=== PATIENT | male | born 1950 | race Caucasian/White ===

== ENCOUNTER → 2023-07-17 | Outpatient (CLI) | payer OTHER ==
[2023-07-17 11:07] VITALS: BP 148/85; PULSE 78; RESP 16; TEMP 97.6
--- NOTE | 2023-07-17 14:07 | P.PAINPG ---
PQRS Measure Charge Sheet Comment: HISTORY OF PRESENT ILLNESS: A 72 yr old male w at side as a referral from the [facility] presents today w severe and chronic neck pain secondary to spondylosis, DDD and facet arthropathy without myelopathy for evaluation. Pt states pain level is provoked at 6 /10 in intensity, constant, localized in the cervical spine, predominantly axial, sharp in character w occasional shooting pain towards the head and R shoulder/ RUE. Pain is provoked by driving. Pain is alleviated by PT in 2017, massage therapy years ago, chiropractic treatments w acupuncture in 2021, physician guided stretches daily since 2021, medications (Robaxin, Neurontin, Tyl), Lidoderm, repositioning and rest. Cervical disability score at 28. PMH: OA, CRPS, HTN, Hyperlipidemia PSH: Lumbar Laminectomy, LESIs (in the past), Ankle Surgery SH: Negative x3 FH: Mo- DM. Sis- CAD All: See list Meds: See list REVIEW OF ORGAN SYSTEMS: CONSTITUTIONAL: No fevers or chills. No recent weight loss. NEUROLOGICAL: + numbness and tingling along the distal extremities. No seizure disorders or headaches. MUSCULOSKELETAL: + pain PSYCHIATRIC: Denies current depression or suicidal thoughts. Physical Examinations : Constitutional : Cooperative , not in acute distress . Neurologic : Cranial nerve II to XII intact. No focal neurological deficits. Psychiatric : alert & oriented x 3. Matching mood & appropriate affect. Judgment & insight intact. Musculoskeletal : Cervical Spine Motor strength in the deltoid and biceps: Normal right side. Normal Left side Motor strength biceps and the wrist extensors: Normal right side . Normal left side Motor strength in the triceps muscle: Normal right side. Normal left side Deep tendon reflexes: Normal at the biceps. Normal at Brachioradialis. Normal at triceps Vertebral body tenderness to deep palpation over Cervical facet loading test: positive bilaterally C4-C5, C5-C6 Spurling test: positive bilaterally Neck distraction test: positive bilaterally Harvinder sign: positive bilaterally Lumbar spine Motor strength lower extremities ,thigh and legs 5/5 Right side , 5/5 Left side Deep tendon reflexes : Normal Knee Jerk. Normal Ankle Jerk Vertebral body tenderness over [place] Test positive Lumbar facet Loading Test: positive Right / positive Left Range of motion of the lumbar spine Flexion 30 degrees, extension 10 degrees Straight Leg Raise test: Left/ Right positive at degree Sukumar test: positive right / positive left. Severe tenderness over the Sacroiliac joint on the Right / Left sides Gaenslen test: positive bilaterally Seated flexion test: positive bilaterally. Sacral spine : Severe tenderness over the Sacroiliac joint: right side / left side Range of motion: Flexion of the lumbar spine <60 degrees Range of motion: Extension of the lumbar spine <20 degrees Gaenslen's Test positive Sukumar test: positive right side / left side Thigh Thrust Test Sacral Thrust Test Imaging: Noncontrast of the cervical spine from 05/24/2023 reviewed Assessment/ Plan : Cervical DDD Recommendation of BL MBB C4-C5, C5-C6 #1. May need a series of injections, up until RFA, for optimal pain relief. Risks, benefits of procedure discussed and patient verbalized understanding. Admits to anti- coagulant use or medical history of diabetes. Protocol for discontinuation/ continuation of medications juan procedure discussed. Minimal anesthesia provided, if clinically indicated, consisting of Versed and Fentanyl. All questions answered. I have spent greater than 30 minutes on patient care today. Dr Bah was a vailable by phone for the evaluation of this patient. The time was used to review the medical records including relevant urine studies and Prescription history (MAPs), review of the available imaging, evaluation and examination of the patient, coordination of care with the medical staff and if applicable referring physicians, as well as creation of the medical record Home Medications: Ambulatory Orders Atorvastatin [Lipitor] 40 mg PO DAILY 07/17/23 Gabapentin 300 mg PO 07/17/23 Lidocaine 5% Patch [Lidoderm] 1 patch TOPICAL DAILY 07/17/23 Losartan [Cozaar] 25 mg PO DAILY 07/17/23 SUMAtriptan succinate 50 mg PO 07/17/23 Topiramate 25 mg PO 07/17/23 amLODIPine 10 mg PO DAILY 07/17/23 methocarbamoL [Robaxin-750] 750 mg PO QID 07/17/23 Controlled Substance Measures - Controlled Substance Measures Is patient prescribed a controlled substance at discharge?: No
== END ==
LOC: PNWHC3 09:41
PROVIDERS: ATTEND Specialist
DX: M50.30 Other cervical disc degeneration, unspecified cervical region (principal); Z88.5 Allergy status to narcotic agent
CPT/HCPCS: 99202

== ENCOUNTER 2023-07-28 07:14 | Day surgery (SDC) | payer OTHER ==
[2023-07-28] MEDS: LACTATED RINGERS 1,000 ML IV SCH (07:38)
[2023-07-28 07:46] VITALS: RESP 16; TEMP 97.8
[2023-07-28] MEDS ORDERED: MIDAZOLAM 2 MG/2 ML VIAL ONE (07:50)
[2023-07-28] MEDS ORDERED: fentaNYL (PF) 50 MCG/ML 2 ML AMP ONE (07:50)
[2023-07-28] MEDS ORDERED: ROPIVACAINE 5MG/ML 20ML VIAL ONE (07:57)
--- NOTE | 2023-07-28 08:18 | P.PCN ---
Date of Procedure: 07/28/23 Procedure(s) Performed: PREOPERATIVE DIAGNOSIS: 1-Cervical Spondylosis with Facet Arthropathy.without myelopathy. 2-cervical degenerative disc disease POSTOPERATIVE DIAGNOSIS:1-cervical spondylosis with facet arthropathy without myelopathy. 2-cervical degenerative disc disease PROCEDURES: Diagnostic bilateral C4 , C5 , and C6 medial branch blocks, with fluoroscopic guidance (fluoroscopy images available in radiology department ) ( to target the facet joint at bilateral C4- 5 , C5- 6 )# 1st ANESTHESIA: Monitored anesthesia care as per anesthesia department . EBL: Minimal PROCEDURE INDICATION: The patient with neck pain secondary to cervical arthropathy unresponsive to more conservative treatments. PROCEDURE DESCRIPTION / TECHNIQUE: The patient was seen and identified in the preoperative area. Risks, benefits, complications, and alternatives were discussed with the patient, the patient agreed to proceed with the procedure and signed the consent. IV was started. Vital signs remained stable throughout the procedure. Patient was taken to the OR and time out was completed. The patient was placed in the Lateral position on the procedure table. The cervical area was prepped and draped in the usual sterile fashion. Critical pause was taken. Vital signs were closely monitored during the procedure. Conscious sedation was used during the procedure to decrease patients anxiety. Using cross-table lateral fluoroscopy, the centroid of the trapezoid of right C4 , C5 and C6, was identified, marked, and localized with 1% lidocaine 1 ml at each level for skin and Sub Q infiltrations . Subsequently, a 22 G 3 spinal needle was advanced guided by fluoroscopy to the centroid of the trapezoid of Right C4 , C5, C6 . [place] tip position was confirmed at the centroid of the trapezoids of Right C4 , C5 ,C6 with anteroposterior fluoroscopy. Subsequently, 2 ml of preservative-free Ropivacaine 0.5% and half ml was injected after negative aspiration for blood and CSF. [place] was then removed intact the same procedure was repeated at the left C4 , C5 , and C6 levels. COMPLICATIONS: No acute complications. DISPOSITION / PLANS: The patient was placed in a supine position and transferred to the recovery area in a stable condition for observation and was discharged from the recovery room after meeting discharge criteria. Home discharge instructions given to the patient by the staff. The patient was reexamined prior to discharge. The patient will schedule a follow up in the clinic in 2-4 weeks.
[2023-07-28] MEDS: IV FLUID CONTINUATION 650 ML IV ONE (08:20)
--- NOTE | 2023-07-28 08:39 | FL ---
EXAMINATION TYPE: FL guided pain mgmt statistic DATE OF EXAM: 07/28/2023 FLUOROSCOPY Gee cervical facet block 8 sec fl .[id number] mGycm2 DAP 4 images provided
[2023-07-28 08:57] VITALS: BP 137/71; PULSE 71
== END 2023-07-28 09:02 | disposition home or self-care (01) ==
LOC: ORPAIN 07:14
PROVIDERS: ATTEND Specialist
DX: M50.322 Other cervical disc degeneration at C5-C6 level (principal); M47.812 Spondylosis without myelopathy or radiculopathy, cervical region; I10 Essential (primary) hypertension; E78.5 Hyperlipidemia, unspecified; G43.909 Migraine, unspecified, not intractable, without status migrainosus; Z88.6 Allergy status to analgesic agent; Z79.899 Other long term (current) drug therapy
CPT/HCPCS: 64490; 64491 ×2; 99152; J2250; J3010; J2795

== ENCOUNTER → 2023-08-09 | Outpatient (CLI) | payer OTHER ==
[2023-08-09 11:02] VITALS: BP 157/89; PULSE 59; RESP 16; TEMP 97.8
--- NOTE | 2023-08-09 13:52 | P.PAINPG ---
PQRS Measure Charge Sheet Comment: HISTORY OF PRESENT ILLNESS: A 73 yr old male w at side presents today w severe and chronic neck pain > 5 yrs secondary to spondylosis, DDD and facet arthropathy without myelopathy for evaluation s/p BL MBB C4-C6 #1. Pt states he experienced 100 % pain relief x 3 hrs s/p procedure. Pt states pain level is provoked at 8 /10 in intensity, constant, localized in the cervical spine, predominantly axial, sharp in character w occasional shooting pain towards the head and R shoulder/ RUE. Pain is provoked by driving. Pain is alleviated by PT in 2017, massage therapy years ago, chiropractic treatments w acupuncture in 2021, physician guided stretches daily since 2021, medications, topical, repositioning and rest. Cervical disability score at 27. Interventional procedures include BL MBB C4-C6 x1 Medications include Robaxin, Neurontin, Tyl, Lidoderm REVIEW OF ORGAN SYSTEMS: CONSTITUTIONAL: No fevers or chills. No recent weight loss. NEUROLOGICAL: + numbness and tingling along the distal extremities. No seizure disorders or headaches. MUSCULOSKELETAL: + pain PSYCHIATRIC: Denies current depression or suicidal thoughts. Physical Examinations : Constitutional : Cooperative , not in acute distress . Neurologic : Cranial nerve II to XII intact. No focal neurological deficits. Psychiatric : alert & oriented x 3. Matching mood & appropriate affect. Judgment & insight intact. Musculoskeletal : Cervical Spine Motor strength in the deltoid and biceps: Normal right side. Normal Left side Motor strength biceps and the wrist extensors: Normal right side . Normal left side Motor strength in the triceps muscle: Normal right side. Normal left side Deep tendon reflexes: Normal at the biceps. Normal at Brachioradialis. Normal at triceps Vertebral body tenderness to deep palpation over Cervical facet loading test: positive bilaterally C4-C5, C5-C6 Spurling test: positive bilaterally Neck distraction test: positive bilaterally Harvinder sign: positive bilaterally Lumbar spine Motor strength lower extremities ,thigh and legs 5/5 Right side , 5/5 Left side Deep tendon reflexes : Normal Knee Jerk. Normal Ankle Jerk Vertebral body tenderness over [place]rien Test positive Lumbar facet Loading Test: positive Right / positive Left Range of motion of the lumbar spine Flexion 30 degrees, extension 10 degrees Straight Leg Raise test: Left/ Right positive at degree Sukumar test: positive right / positive left. Severe tenderness over the Sacroiliac joint on the Right / Left sides Gaenslen test: positive bilaterally Seated flexion test: positive bilaterally. Sacral spine : Severe tenderness over the Sacroiliac joint: right side / left side Range of motion: Flexion of the lumbar spine <60 degrees Range of motion: Extension of the lumbar spine <20 degrees Gaenslen's Test positive Sukumar test: positive right side / left side Thigh Thrust Test Sacral Thrust Test Imaging: Noncontrast of the cervical spine from 05/24/2023 reviewed Assessment/ Plan : Cervical DDD Recommendation of BL MBB C4-C6 #2. May need a series of injections, up until RFA, for optimal pain relief. Risks, benefits of procedure discussed and patient verbalized understanding. Admits to anti- coagulant use or medical history of diabetes. Protocol for discontinuation/ continuation of medications juan procedure discussed. Minimal anesthesia provided, if clinically indicated, consisting of Versed and Fentanyl. All questions answered. I have spent greater than 30 minutes on patient care today. Dr Bah was available by phone for the evaluation of this patient. The time was used to review the medical records including relevant urine studies and Prescription history (MAPs), review of the available imaging, evaluation and examination of t he patient, coordination of care with the medical staff and if applicable referring physicians, as well as creation of the medical record PQRS Narrative: Hx Alcohol Use (MH) No Home Medications: Ambulatory Orders Atorvastatin [Lipitor] 40 mg PO DAILY 07/17/23 Gabapentin 300 mg PO DAILY PRN 07/17/23 Lidocaine 5% Patch [Lidoderm] 1 patch TOPICAL DAILY 07/17/23 Losartan [Cozaar] 25 mg PO DAILY 07/17/23 SUMAtriptan succinate 50 mg PO HS 07/17/23 Topiramate 25 mg PO HS 07/17/23 amLODIPine 10 mg PO DAILY 07/17/23 methocarbamoL [Robaxin-750] 750 mg PO QID 07/17/23 Controlled Substance Measures - Controlled Substance Measures Is patient prescribed a controlled substance at discharge?: No
== END ==
LOC: PNWHC3 09:44
PROVIDERS: ATTEND Specialist
DX: M50.30 Other cervical disc degeneration, unspecified cervical region (principal); Z88.5 Allergy status to narcotic agent
CPT/HCPCS: 99211

== ENCOUNTER 2023-08-29 09:24 | Day surgery (SDC) | payer OTHER ==
[2023-08-24 14:22] VITALS: BMI 29.8
[2023-08-29] MEDS: LACTATED RINGERS 1,000 ML IV SCH (09:59)
[2023-08-29 10:28] VITALS: TEMP 97.7
[2023-08-29] MEDS ORDERED: ROPIVACAINE 5MG/ML 20ML VIAL ONE (10:29)
[2023-08-29] MEDS ORDERED: MIDAZOLAM 2 MG/2 ML VIAL ONE (10:29)
[2023-08-29] MEDS ORDERED: fentaNYL (PF) 50 MCG/ML 2 ML AMP ONE (10:29)
--- NOTE | 2023-08-29 10:52 | P.PCN ---
Date of Procedure: 08/29/23 Procedure(s) Performed: PREOPERATIVE DIAGNOSIS: 1-Cervical Spondylosis with Facet Arthropathy.without myelopathy. 2-cervical degenerative disc disease POSTOPERATIVE DIAGNOSIS:1-cervical spondylosis with facet arthropathy without myelopathy. 2-cervical degenerative disc disease PROCEDURES: Diagnostic bilateral C4 , C5 , and C6 medial branch blocks, with fluoroscopic guidance (fluoroscopy images available in radiology department ) ( to target the facet joint at bilateral C4- 5 , C5- 6 )#2nd ANESTHESIA: Sedation with Versed 2 mg and fentanyl 100 mcg . (Patient to start time 10:29, finished at 10:49 ) EBL: Minimal PROCEDURE INDICATION: The patient with neck pain secondary to cervical arthropathy unresponsive to more conservative treatments. PROCEDURE DESCRIPTION / TECHNIQUE: The patient was seen and identified in the preoperative area. Risks, benefits, complications, and alternatives were discussed with the patient, the patient agreed to proceed with the procedure and signed the consent. IV was started. Vital signs remained stable throughout the procedure. Patient was taken to the OR and time out was completed. The patient was placed in the Lateral position on the procedure table. The cervical area was prepped and draped in the usual sterile fashion. Critical pause was taken. Vital signs were closely monitored during the procedure. Conscious sedation was used during the procedure to decrease patients anxiety. Using cross-table lateral fluoroscopy, the centroid of the trapezoid of right C4 , C5 and C6, was identified, marked, and localized with 1% lidocaine 1 ml at each level for skin and Sub Q infiltrations . Subsequently, a 22 G 3 spinal needle was advanced guided by fluoroscopy to the centroid of the trapezoid of Right C4 , C5, C6 . [place] tip position was confirmed at the centroid of the trapezoids of Right C4 , C5 ,C6 with anteroposterior fluoroscopy. Subsequently, 2 ml of preservative-free Ropivacaine 0.5% and half ml was injected after negative aspiration for blood and CSF. [place] was then removed intact the same procedure was repeated at the left C4 , C5 , and C6 levels. COMPLICATIONS: No acute complications. DISPOSITION / PLANS: The patient was placed in a supine position and transferred to the recovery area in a stable condition for observation and was discharged from the recovery room after meeting discharge criteria. Home discharge instructions given to the patient by the staff. The patient was reexamined prior to discharge. The patient will schedule a follow up in the clinic in 2-4 weeks.
[2023-08-29] MEDS: IV FLUID CONTINUATION 1,000 ML IV ONE (10:59)
--- NOTE | 2023-08-29 11:06 | FL ---
EXAMINATION TYPE: FL guided pain mgmt statistic Intraoperative/procedural fluoroscopic services were provided. Total fluoroscopy time is 33.0 seconds with a total of 4 submitted images to PACS. Please s ee the operative/procedural note for further details. DAP: 0.02477 mGym2
[2023-08-29 11:09] VITALS: RESP 16
[2023-08-29 11:49] VITALS: BP 113/72; PULSE 77
== END 2023-08-29 11:30 | disposition home or self-care (01) ==
LOC: ORPAIN 09:24
PROVIDERS: ATTEND Specialist
DX: M47.812 Spondylosis without myelopathy or radiculopathy, cervical region (principal); M50.322 Other cervical disc degeneration at C5-C6 level; Z88.6 Allergy status to analgesic agent
CPT/HCPCS: 64490; 64491 ×2; 99152; J2250; J3010; J2795

== ENCOUNTER → 2023-09-18 | Outpatient (CLI) | payer OTHER ==
[2023-09-18 13:06] VITALS: BP 140/75; PULSE 76; RESP 15; TEMP 98.7
--- NOTE | 2023-09-18 14:10 | P.PAINPG ---
PQRS Measure Charge Sheet Comment: HISTORY OF PRESENT ILLNESS: A 73 yr old male w at side presents today w severe and chronic neck pain > 5 yrs secondary to spondylosis, DDD and facet arthropathy without myelopathy for evaluation s/p BL MBB C4-C6 #2. Pt states he experienced 80 % pain relief x 4 hrs s/p procedure. Pt states pain level is provoked at 8 /10 in intensity, constant, localized in the cervical spine, predominantly axial, sharp in character w occasional shooting pain towards the head and R shoulder/ RUE. Pain is provoked by driving. Pain is alleviated by PT in 2017, massage therapy years ago, chiropractic treatments w acupuncture in 2021, physician guided stretches daily since 2021, medications, topical, repositioning and rest. Cervical disability score at 26. Interventional procedures include BL MBB C4-C6 x2 Medications include Robaxin, Neurontin, Tyl, Lidoderm REVIEW OF ORGAN SYSTEMS: CONSTITUTIONAL: No fevers or chills. No recent weight loss. NEUROLOGICAL: + numbness and tingling along the distal extremities. No seizure disorders or headaches. MUSCULOSKELETAL: + pain PSYCHIATRIC: Denies current depression or suicidal thoughts. Physical Examinations : Constitutional : Cooperative , not in acute distress . Neurologic : Cranial nerve II to XII intact. No focal neurological deficits. Psychiatric : alert & oriented x 3. Matching mood & appropriate affect. Judgment & insight intact. Musculoskeletal : Cervical Spine Motor strength in the deltoid and biceps: Normal right side. Normal Left side Motor strength biceps and the wrist extensors: Normal right side . Normal left side Motor strength in the triceps muscle: Normal right side. Normal left side Deep tendon reflexes: Normal at the biceps. Normal at Brachioradialis. Normal at triceps Vertebral body tenderness to deep palpation over Cervical facet loading test: positive bilaterally C4-C5, C5-C6 Spurling test: positive bilaterally Neck distraction test: positive bilaterally Harvinder sign: positive bilaterally Lumbar spine Motor strength lower extremities ,thigh and legs 5/5 Right side , 5/5 Left side Deep tendon reflexes : Normal Knee Jerk. Normal Ankle Jerk Vertebral body tenderness over Obrien Test positive Lumbar facet Loading Test: positive Right / positive Left Range of motion of the lumbar spine Flexion 30 degrees, extension 10 degrees Straight Leg Raise test: Left/ Right positive at degree Sukumar test: positive right / positive left. Severe tenderness over the Sacroiliac joint on the Right / Left sides Gaenslen test: positive bilaterally Seated flexion test: positive bilaterally. Sacral spine : Severe tenderness over the Sacroiliac joint: right side / left side Range of motion: Flexion of the lumbar spine <60 degrees Range of motion: Extension of the lumbar spine <20 degrees Gaenslen's Test positive Sukumar test: positive right side / left side Thigh Thrust Test Sacral Thrust Test Imaging: Noncontrast of the cervical spine from 05/24/2023 reviewed Assessment/ Plan : Cervical DDD Recommendation of BL RFA C4-C6. Exhibited optimal pain relief w previous BL MBB procedures. Risks, benefits of procedure discussed and patient verbalized understanding. Admits to anti- coagulant use or medical history of diabetes. Protocol for discontinuation/ continuation of medications juan procedure discussed. Minimal anesthesia provided, if clinically indicated, consisting of Versed and Fentanyl. Recommendation of medication management. [place] 5/325mg #60 qw 1 RF. Use, side effects, adverse reactions, safe storage discussed. Opiate/ narcotic agreement signed 09/18/23. All questions answered. I have spent greater than 30 minutes on patient care today. Dr Bah was available by phone for the evaluation of this patient. The time was used to review the medical records including relevant urine studies and Prescription history (MAPs), review of the available imaging, evaluation and examination of the patient, coordination of care with the medical staff and if applicable referring physicians, as well as creation of the medical record PQRS Narrative: Hx Alcohol Use (MH) No Home Medications: Ambulatory Orders Atorvastatin [Lipitor] 40 mg PO QAM 07/17/23 Gabapentin 300 mg PO DAILY PRN 07/17/23 Lidocaine 5% Patch [Lidoderm] 1 patch TOPICAL QAM 07/17/23 Losartan [Cozaar] 25 mg PO QAM 07/17/23 SUMAtriptan succinate 50 mg PO HS PRN 07/17/23 Topiramate 50 mg PO HS 07/17/23 amLODIPine 10 mg PO QAM 07/17/23 methocarbamoL [Robaxin-750] 750 mg PO QID 07/17/23 Acetaminophen Tab [Tylenol] 650 mg PO Q6H PRN 08/24/23 Controlled Substance Measures - Controlled Substance Measures Is patient prescribed a controlled substance at discharge?: Yes When asked, does pt state using other controlled substances?: Yes If prescribed controlled substance>3 days was MAPS reviewed?: Yes If Rx opioid, was Start Talking consent form obtained?: Yes Was information provided regarding opioid addiction?: Yes
== END ==
LOC: PNWHC3 10:03
PROVIDERS: ATTEND Specialist
DX: M50.321 Other cervical disc degeneration at C4-C5 level (principal); M50.322 Other cervical disc degeneration at C5-C6 level; M47.812 Spondylosis without myelopathy or radiculopathy, cervical region; G89.29 Other chronic pain; Z88.8 Allergy status to other drugs, medicaments and biological substances
CPT/HCPCS: 99211

== ENCOUNTER 2023-09-28 07:03 | Day surgery (SDC) | payer OTHER ==
[2023-09-25 16:09] VITALS: BMI 29.8
[2023-09-28] MEDS: LACTATED RINGERS 1,000 ML IV ONE ×2 (07:49→09:30)
[2023-09-28 08:18] VITALS: TEMP 96.9
[2023-09-28] MEDS ORDERED: DEXAMETHASONE SOD PHOSPHATE 10 MG/ML 1 ML VIAL ONE (08:36)
[2023-09-28] MEDS ORDERED: MIDAZOLAM 2 MG/2 ML VIAL ONE (08:36)
[2023-09-28] MEDS ORDERED: ROPIVACAINE 5MG/ML 20ML VIAL ONE (08:36)
[2023-09-28] MEDS ORDERED: fentaNYL (PF) 50 MCG/ML 2 ML AMP ONE (08:36)
--- NOTE | 2023-09-28 09:26 | P.PCN ---
Date of Procedure: 09/28/23 Description of Procedure: PREOPERATIVE DIAGNOSIS: Cervical spondylosis M47.812 POSTOPERATIVE DIAGNOSIS: Cervical spondylosis M47.812 PROCEDURES: Radiofrequency thermocoagulation, RIGHT C4-C5. C5-6 ANESTHESIA: Local with 1% lidocaine; IV sedation with 100 mcq fentanyl and 3mg Versed. EBL: Minimal PROCEDURE INDICATION: The patient with neck pain secondary to cervical arthropathy. He has had multiple RFA's with excellent relief. PROCEDURE DESCRIPTION / TECHNIQUE: The patient was seen and identified in the preoperative area. Risks, benefits, complications, and alternatives were discussed with the patient, the patient agreed to proceed with the procedure and signed the consent. IV was started. Vital signs remained stable throughout the procedure. Patient was taken to the OR and time out was completed. The patient was placed in the prone position on the procedure table. A pillow was placed under the patients chest to increase the cervical interlaminar space. The cervical area was prepped and draped in the usual sterile fashion. Critical pause was taken. Vital signs were closely monitored during the procedure. Conscious sedation was used during the procedure to decrease patients anxiety. AP, and 30 degree oblique, the centroid of the Right trapezoid of C4, C5, and C6 were identified, marked, and localized with 1% lidocaine, 5ml at each site. Subsequently, a 20 [id number] radiofrequency cannula with a 10-mm active tip was advanced guided by fluoroscopy to the centroid of the trapezoid of C4, C5, and C6 . Needle tip position was confirmed at the centroid of the trapezoids of C3, C4, C5, and C6 with anteroposterior fluoroscopy, lateral, and contralateral oblique. Each site then underwent sensory testing at 50 Hz and 0 to 1 volt and motor testing at 2 Hz and 0 to 3 volt with local stimulation, but no radicular symptoms down the arm. Sensory testing was positive for reproducible sensation in the treatment target area. Motor stimulation showed excellent multifidus muscle contraction with no radiation Thereafter C4,C5 and C6 sites underwent rad iofrequency thermocoagulation at 80 degrees celsius for 60 seconds after injecting 0.5 ml of PF lidocaine 1%. [place] were retracted slightly, rotated, and second burn was performed. After thermocoagulation, 1 ml of the block solution containing dexamethasone 10 mg and 4 mL of ropivacaine was injected at the C4, C5, and C6 levels after negative aspiration of CSF and blood and with no paresthesias. Cannulas were retracted while injecting lidocaine 1% until the needle is out. Skin was cleansed and bandages were applied. COMPLICATIONS: No acute complications. COMMENTS: DISPOSITION / PLANS: The patient was placed in a supine position and transferred to the recovery area in a stable condition for observation and was discharged from the recovery room after meeting discharge criteria. Home discharge instructions given to the patient by the staff. The patient was reexamined prior to discharge. The patient will schedule left cervical RFA in 2- 4 weeks. All images were saved and stored. Fluoroscopy utilized to obtimize needle position
[2023-09-28] MEDS ORDERED: LACTATED RINGERS 1,000 ML IV SCH (09:30)
--- NOTE | 2023-09-28 09:33 | FL ---
EXAMINATION TYPE: FL guided pain mgmt statistic DATE OF EXAM: 09/28/2023 HISTORY: Fluoroscopy time Total dose area product (DAP) in uGy*m?, mGy*cm? (or similar): 0.12237 IMPRESSION: 1. Fluoroscopy time.
[2023-09-28 09:54] VITALS: BP 126/82; PULSE 66; RESP 18
== END 2023-09-28 10:07 | disposition home or self-care (01) ==
LOC: ORPAIN 07:03
PROVIDERS: ATTEND Anesthesiology
DX: M47.812 Spondylosis without myelopathy or radiculopathy, cervical region (principal); Z88.6 Allergy status to analgesic agent
CPT/HCPCS: 64633; 64634; J2250; J1100; J3010; J2795

== ENCOUNTER 2023-10-04 11:40 | Day surgery (SDC) | payer MEDICARE, OTHER ==
[2023-09-27 12:55] VITALS: BMI 29.8
[~2023-10-04 11:40] MED LIST: LIDOCAINE 1% (10MG/ML) FOR IV START INTRADERMA PRN
[2023-10-04] MEDS: LACTATED RINGERS 1,000 ML IV SCH (12:21)
[2023-10-04 12:45] VITALS: TEMP 97.1
[2023-10-04] MEDS ORDERED: PROPOFOL 10 MG/ML 20 ML VIAL IV ONE (12:56)
--- NOTE | 2023-10-04 13:15 | P.PCN ---
Date of Procedure: 10/04/23 Procedure(s) Performed: BRIEF HISTORY: Patient is a 73-year-old pleasant white male scheduled for an elective colonoscopy as a part of screening for colon cancer and centimeters colon cancer. His brother was diagnosed with colon cancer at age 51. PROCEDURE PERFORMED: Colonoscopy. PREOPERATIVE DIAGNOSIS: Screening for colon cancer and family history of colon cancer. IV sedation per Anesthesia. PROCEDURE: After informed consent was obtained, the patient, was brought into the endoscopy unit. IV sedation was administered by Anesthesia under continuous monitoring. Digital rectal examination was normal. Initially the Olympus CF-160 flexible video colonoscope was then inserted in the rectum, gradually advanced into the cecum without any difficulty. Careful examination was performed as the scope was gradually being withdrawn. Ileocecal valve and the appendiceal orifice were visualized and appeared normal. Prep was excellent. Mucosa of the cecum, ascending colon, transverse colon, descending colon, sigmoid colon, and rectum appeared normal. Scattered sigmoid diverticulosis. Retroflexion was performed in the rectum and no lesions were seen. The patient tolerated the procedure well. IMPRESSION: Normal-appearing colon from rectum to cecum no evidence of colorectal neoplasia. Scattered sigmoid diverticulosis. RECOMMENDATIONS: Findings of this examination were discussed with the patient as well as his family. He was advised to have a repeat screening colonoscopy in 5 years because of the family history of colon cancer.
[2023-10-04 13:37] VITALS: BP 121/85; PULSE 68; RESP 14
== END 2023-10-04 13:58 | disposition home or self-care (01) ==
LOC: ORWHC2ENDO 11:40
PROVIDERS: ATTEND Internal Medicine Gastroenterology
DX: Z12.11 Encounter for screening for malignant neoplasm of colon (principal); K57.30 Diverticulosis of large intestine without perforation or abscess without bleeding; I10 Essential (primary) hypertension; E78.5 Hyperlipidemia, unspecified; G43.909 Migraine, unspecified, not intractable, without status migrainosus; Z80.0 Family history of malignant neoplasm of digestive organs; Z79.899 Other long term (current) drug therapy
CPT/HCPCS: J2704; G0105